=== PATIENT | male | born 1960 | race Caucasian/White ===

== ENCOUNTER 2024-04-19 14:27 | Inpatient (IN) | payer OTHER, SELFPAY ==
[2024-04-19] MEDS ORDERED: Nitroglycerin 2% Ointment 1 INCH/1 GM Packet ONE ×2 (15:47→15:48)
[2024-04-19 16:23] LABS: #Basophils 0.03 10x3/uL (0.0-0.2); %Basophils 0.3 % (0.0-1.0); %Eosinophils 0.4 % (0.0-10.0); %Lymphocytes 15.4 % (21.0-51.0); %Monocytes 6.6 % (0.0-10.0); Hemoglobin 12.2 g/dL (14.0-18.0); Mean Corpuscular HGB CONC 32.1 g/dL (32.0-36.0); Mean Corpuscular Volume 87.2 fL (78.0-98.0); Mean Platelet Volume 12.8 fL (7.4-10.4); Platelet Count 165 10x3/uL (130-400); RBC Distribution Width 14.2 % (11.5-14.5); Red Blood Cell (RBC) Count 4.36 mill/uL (4.70-6.10)
[2024-04-19 16:39] LABS: Troponin I Less than 0.010 ng/mL (< 0.028)
[2024-04-19 17:00] LABS: ALT (SGPT) 14 U/L (8-55); AST (SGOT) 13 U/L (5-34); Albumin 3.2 g/dL (3.4-4.8); Alkaline Phosphatase 73 U/L (40-110); Anion Gap 16 mmol/L (10-20); BUN (Urea Nitrogen) 16 mg/dL (8.4-25.7); Bilirubin, Total 0.7 mg/dL (0.2-1.2); Calc. Creatinine Clearance 0 mL/min (70-130); Calcium 9.2 mg/dL (7.8-10.44); Carbon Dioxide 20 mmol/L (23-31); Chloride 103 mmol/L (98-107); Estimated GFR 101; Globulin 4.5 g/dL (2.4-3.5); Glucose 128 mg/dL (80-115); Lipase 32 U/L (8-78); Magnesium 1.9 mg/dL (1.6-2.6); Potassium 3.9 mmol/L (3.5-5.1); Protein, Total 7.7 g/dL (5.8-8.1); Sodium 135 mmol/L (136-145)
[2024-04-19] MEDS ORDERED: Ondansetron PF 4 MG/2 ML Vial IVP PRN (19:56)
[2024-04-19] MEDS ORDERED: Acetaminophen 325 MG TAB PO PRN (19:56)
[2024-04-19] MEDS ORDERED: Nitroglycerin 0.4 MG TAB (25 Tab Bottle) SL PRN (20:04)
[2024-04-19 20:45] VITALS: BMI 51.7
[2024-04-19 20:55] LABS: Troponin I 0.015 ng/mL (< 0.028)
[2024-04-19] MEDS: Famotidine 20 MG TAB PO SCH (23:00)
[2024-04-20 01:41] LABS: Troponin I 0.016 ng/mL (< 0.028)
[2024-04-20 04:29] LABS: #Basophils Less than 0.03 10x3/uL (0.0-0.2); %Basophils 0.2 % (0.0-1.0); %Eosinophils 1.1 % (0.0-10.0); %Lymphocytes 18.3 % (21.0-51.0); %Monocytes 8.3 % (0.0-10.0); %Neutrophils 71.7 % (42.0-75.0); Hematocrit 35.9 % (42.0-52.0); Hemoglobin 11.5 g/dL (14.0-18.0); Mean Corpuscular Volume 87.6 fL (78.0-98.0); Mean Platelet Volume 11.4 fL (7.4-10.4); Platelet Count 169 10x3/uL (130-400); RBC Distribution Width 14.3 % (11.5-14.5)
[2024-04-20 05:01] LABS: Anion Gap 11 mmol/L (10-20); BUN (Urea Nitrogen) 14 mg/dL (8.4-25.7); Calc. Creatinine Clearance 203 mL/min (70-130); Calcium 8.8 mg/dL (7.8-10.44); Carbon Dioxide 23 mmol/L (23-31); Chloride 105 mmol/L (98-107); Estimated GFR 100; Glucose 164 mg/dL (80-115); Potassium 3.7 mmol/L (3.5-5.1); Sodium 135 mmol/L (136-145)
[2024-04-20] MEDS ORDERED: Rivaroxaban 10 MG TAB PO SCH (09:00)
[2024-04-20] MEDS ORDERED: Non-Formulary Item 1 EACH (Lisinopril [Lisinopril] 40 MG Tablet) PO SCH (09:00)
[2024-04-20] MEDS ORDERED: Regadenoson 0.4 MG/5 ML SYRINGE ONE (09:23)
[2024-04-20] MEDS: Sertraline 25 MG TAB PO SCH (11:20)
[2024-04-20] MEDS: Potassium Chloride 10 MEQ TAB PO SCH (11:20)
[2024-04-20] MEDS: Aspirin 81 mg Enteric Coated Tablet PO SCH (11:20)
[2024-04-20] MEDS: Furosemide 20 MG TAB PO SCH (11:20)
[2024-04-20] MEDS: DULoxetine 60 MG CAP PO SCH (11:21)
[2024-04-20] MEDS: Atorvastatin Calcium 40 MG TAB PO SCH (11:21)
[2024-04-20] MEDS: Calcium Carbonate 600 MG TAB PO SCH (11:21)
[2024-04-20] MEDS: Lisinopril 20 MG TAB PO SCH (11:21)
[2024-04-21 16:10] VITALS: BP 146/64; TEMP 98.6
== END 2024-04-21 19:58 | DRG 313 ==
LOC: ERS 14:27 → 2NO 19:45 → EEVIPCON 19:45 → OBSVTOIN 04-20 16:19
PROVIDERS: ADMIT Internal Medicine; ATTEND Family Medicine
PROC: 5A09357 Assistance with Respiratory Ventilation, Less than 24 Consecutive Hours, Continuous Positive Airway Pressure (ICD-10-PCS; principal; 2024-04-20)
DX: R07.89 Other chest pain (principal); Z68.43 Body mass index [BMI] 50.0-59.9, adult; I25.10 Atherosclerotic heart disease of native coronary artery without angina pectoris; E11.9 Type 2 diabetes mellitus without complications; E66.01 Morbid (severe) obesity due to excess calories; F32.A Depression, unspecified; F41.9 Anxiety disorder, unspecified; E78.5 Hyperlipidemia, unspecified; I10 Essential (primary) hypertension; Z87.891 Personal history of nicotine dependence; Z79.899 Other long term (current) drug therapy; Z88.0 Allergy status to penicillin; Z91.018 Allergy to other foods; Z79.01 Long term (current) use of anticoagulants; Z79.84 Long term (current) use of oral hypoglycemic drugs; Z90.49 Acquired absence of other specified parts of digestive tract; I25.2 Old myocardial infarction; Z95.5 Presence of coronary angioplasty implant and graft; I48.0 Paroxysmal atrial fibrillation
CPT/HCPCS: 36415; 71045; 78452; 80048; 80053; 83690; 83735; 83880; 84484; 85025; 93005; 93017; 94660; A9502; G0378; J2785